=== PATIENT | female | born 1995 | race Two or more races ===

== ENCOUNTER 2021-05-23 22:19 | Observation (INO) | payer MEDICAID ==
[2021-05-23] MEDS ORDERED: LACTATED RINGER'S 1,000 ML IV ONE (23:15)
[2021-05-23] MEDS ORDERED: LACTATED RINGER'S 1,000 ML IV SCH (23:15)
[2021-05-24] MEDS: TERBUTALINE SULFATE 1 MG/ML 1ML VIAL SC SCH ×3 (00:20→01:02)
[2021-05-24] MEDS ORDERED: PREN-96 PO (01:00)
== END 2021-05-24 02:00 | disposition home or self-care (01) ==
LOC: LDRP 22:19
PROVIDERS: ADMIT Obstetrics & Gynecology; ATTEND Obstetrics & Gynecology
DX: O60.03 Preterm labor without delivery, third trimester (principal); O23.43 Unspecified infection of urinary tract in pregnancy, third trimester; Z3A.35 35 weeks gestation of pregnancy
CPT/HCPCS: 59025; 81002; 94760; 96360; 96361; 96372; G0378; J3105; 96366

== ENCOUNTER 2021-05-29 16:30 | Observation (INO) | payer MEDICAID ==
[~2021-05-29 16:30] MED LIST: PREN-96 PO
[2021-05-29] MEDS ORDERED: NIF10C PO (17:33)
== END 2021-05-29 17:35 | disposition home or self-care (01) ==
LOC: LDRP 16:30
PROVIDERS: ADMIT Specialist; ATTEND Specialist
DX: O60.03 Preterm labor without delivery, third trimester (principal); Z3A.35 35 weeks gestation of pregnancy
CPT/HCPCS: 59025; 81002; G0378

== ENCOUNTER 2021-07-26 16:12 | Emergency (ER) | payer MEDICAID ==
[~2021-07-26] VITALS: Ht 162.6 cm; Wt 87.5 kg
[~2021-07-26 16:12] MED LIST changes: +NIF10C PO
[2021-07-26 17:29] VITALS: BP 133/80
== END 2021-07-26 18:18 | disposition home or self-care (01) ==
LOC: ER 16:12
DX: Z48.01 Encounter for change or removal of surgical wound dressing (principal); Z79.899 Other long term (current) drug therapy

== ENCOUNTER 2022-09-19 17:25 | Emergency (ER) | payer MEDICAID ==
[~2022-09-19] VITALS: Ht 162.6 cm; Wt 91.4 kg
[2022-09-19 19:29] LABS: Basophils # (auto) 0 10 ^3/uL (0-0.2); Basophils % (auto) 0.3 % (0.0-2.0); Eosinophils # (auto) 0 10 ^3/uL (0-0.8); Eosinophils % (auto) 0.1 % (0.0-7.0); Hemoglobin 14.5 g/dL (12.2-16.2); Lymphocytes # (auto) 0.7 10 ^3/uL (0.4-5.4); Lymphocytes % (auto) 9.7 % (10.0-50.0); Mean Corpuscular Hemoglobin 29.4 pg (28.0-32.0); Monocytes # (auto) 0.4 10 ^3/uL (0-1.3); Monocytes % (auto) 5.3 % (0.0-12.0); Neutrophils # (auto) 6.2 10 ^3/uL (1.6-8.6); Neutrophils % (auto) 84.6 % (37.0-80.0); Nucleated Red Blood Cells % 0.1 %; Red Blood Cells 4.94 10^6/uL (4.0-5.20); Red Cell Distribution Width 13.9 % (11.8-14.3); White Blood Cell 7.3 10^3/uL (4.4-10.8)
[2022-09-19 19:47] LABS: Albumin 3.9 g/dL (3.4-5.0); Calcium 8.8 mg/dL (8.5-10.1); Magnesium 2.2 mg/dL (1.6-2.6); Potassium 4.1 mmol/L (3.5-5.1)
[2022-09-19 19:52] LABS: BUN/Creatinine Ratio 16.7; Bilirubin, Total 0.7 mg/dL (0.2-1.0); Total Protein 8.1 g/dL (6.4-8.2)
[2022-09-19 23:02] LABS: Urine Bacteria FEW /hpf (None Seen); Urine Blood Negative /uL (Negative); Urine Mucus FEW (None Seen); Urine Specific Gravity 1.019 (1.001-1.035); Urine WBC 9 /hpf (0 - 5)
[2022-09-19 23:20] LABS: Amphetamine Screen, Urine NEGATIVE (NEGATIVE); Barbiturate Scree,Urine NEGATIVE (NEGATIVE); Benzodiazephine Screen, Urine NEGATIVE (NEGATIVE); Cannabinoid Screen, Urine NEGATIVE (NEGATIVE); Cocaine Screen, Urine NEGATIVE (NEGATIVE); Opiate Scree,Urine NEGATIVE (NEGATIVE); Phencyclidine Screen, Urine NEGATIVE (NEGATIVE)
[2022-09-19] MEDS ORDERED: CIPR-173 PO ×2 (23:34→23:35)
[2022-09-19] MEDS ORDERED: SODIUM CHLORIDE 0.9% 1,000 ML IV ONE (23:45)
[2022-09-20 01:20] VITALS: BP 127/70
== END 2022-09-20 02:03 | disposition home or self-care (01) ==
LOC: ER 17:25
DX: R91.1 Solitary pulmonary nodule (principal); N39.0 Urinary tract infection, site not specified; R94.31 Abnormal electrocardiogram [ECG] [EKG]; Z20.822 Contact with and (suspected) exposure to COVID-19
CPT/HCPCS: 36415; 74176; 80053; 80307; 81001; 83605; 83735; 84702; 85025; 87040; 87045; 87177; 87426; 87427; 87493; 93005; 96360; 96361; 99285; J7030